=== PATIENT | male | born 1945 | race Caucasian/White ===

== ENCOUNTER → 2017-02-06 | Outpatient (CLI) | payer OTHER | LOC: BHFA 10:45 | PROVIDERS: ATTEND Internal Medicine Cardiovascular Disease | DX: R60.9 Edema, unspecified (principal) ==

== ENCOUNTER → 2018-08-12 | Outpatient (CLI) | payer OTHER | LOC: BHFA 08:30 | PROVIDERS: ATTEND Internal Medicine Cardiovascular Disease | DX: I48.92 Unspecified atrial flutter (principal) | CPT/HCPCS: 78452; 93017; A9500; J2785 ==

== ENCOUNTER 2018-08-19 07:42 | Observation (INO) | payer OTHER ==
[2018-08-19] MEDS ORDERED: NS 1,000 ML IV ONE (07:47)
[2018-08-19 08:22] LABS: PLATELET COUNT 239 10^3/uL (150-400)
[2018-08-19 08:36] LABS: INR 1.09 (0.83-1.16); PROTIME(PATIENT) 14.3 SEC (12.0-15.0)
--- NOTE | 2018-08-19 08:40 | PDGENHP ---
History & Physical Chief Complaint: symptomatic afl Relevant Physical Exam: s1s2 irreg cta ao3 Cardiorespiratory Assessment: for bridget and afl ablation
[2018-08-19] MEDS ORDERED: HEPARIN 10,000 UNIT/10 ML MDV (1,000 UNIT/ML) ONE (10:08)
[2018-08-19] MEDS ORDERED: LIDOCAINE 1% 300 MG/30 ML SDV ONE (10:08)
[2018-08-19] MEDS ORDERED: BUPIVACAINE 0.75% 10 ML SDV ONE (10:09)
--- NOTE | 2018-08-19 10:15 | PDANEPAE ---
ANE History of Present Illness here for AF ablation ANE Past Medical History - Cardiovascular History Hx Hypertension: Yes Hx Arrhythmias: Yes Hx Chest Pain: No Hx Coronary Artery / Peripheral Vascular Disease: Yes Hx CHF / Valvular Disease: No Cardiovascular History Comment: s/p cabg - Pulmonary History Hx COPD: No Hx Asthma/Reactive Airway Disease: No Hx Recent Upper Respiratory Infection: No Hx Oxygen in Use at Home: No Hx Sleep Apnea: Yes - Endocrine History Hx Diabetes: Yes - Renal History Hx Renal Disorders: No - Liver History Hx Hepatic Disorders: No - Neurological & Psychiatric Hx Hx Neurological and Psychiatric Disorders: No ANE Review of Systems Review of systems is: negative Review of Systems: - Exercise capacity Exercise capacity: >=4 METS ANE Patient History - Allergies Allergies/Adverse Reactions: Irpppiy-Vyq-Ege Reductase Inhibitor Allergy (Unknown, Verified 08/14/18 09:18) Other-Enter Comments - Home Medications Home medications: home medication list seen and reviewed Home Medications: Aspirin EC [Aspirin EC 81 mg (*)] 81 mg PO DAILY 10/20/14 [Last Taken 08/18/18 08:00] Carvedilol [Coreg (*)] 3.125 mg PO DAILY 10/20/14 [Last Taken 08/18/18] Dabigatran Etexilate Mesyl [Pradaxa 150 MG (RX)] 150 mg PO BID 10/20/14 [Last Taken 08/17/18 19:00] Fenofibrate [Tricor 145 mg (RX)] 145 mg PO DAILY 10/20/14 [Last Taken 08/18/18] Finasteride [Proscar 5 MG (*)] 5 mg PO DAILY 10/20/14 [Last Taken 08/18/18] Losartan Potassium [Cozaar] 100 mg PO DAILY 10/20/14 [Last Taken 08/18/18] Omeprazole [Prilosec 20 mg] 20 mg PO DAILY PRN 10/20/14 [Last Taken 08/18/18] Rosuvastatin Calcium [Crestor 40mg (RX)] 40 mg PO HS 10/20/14 [Last Taken ] Magnesium Amino Acid Chelate [Magnesium] 100 mg PO DAILY 08/14/18 [Last Taken ] [place]-3 Fatty Acids [Fish Oil 1000 mg (*)] 1,000 mg PO DAILY 08/14/18 [Last Taken 08/18/18] SITAGLIPTIN PHOSPHATE [Januvia 50 mg] 50 mg PO DAILY 08/14/18 [Last Taken ] buPROPion SR [Wellbutrin 150mg SR (*)] 150 mg PO BID 08/14/18 [Last Taken ] metFORMIN HCL [Glucophage 500 mg (*)] 500 mg PO BIDMEAL 08/14/18 [Last Taken ] - NPO status NPO Status: no food or drink >8 hours - Smoking Hx Smoking Status: Never smoked ANE Labs/Vital Signs - Labs Result Diagrams: 08/19/18 08:10 08/19/18 08:10 - Vital Signs Vital Signs: reviewed preoperatively; see RN documention for details Height: 175.26 cm Weight: 92.079 kg ANE Physical Exam - Airway Neck exam: FROM Mallampati Score: Class 2 Mouth exam: dentures - Pulmonary Pulmonary: no respiratory distress - Cardiovascular Cardiovascular: other (aflutter) - ASA Status ASA Status: III ANE Anesthesia Plan Anesthesia Plan: general endotracheal anesthesia
[2018-08-19] MEDS ORDERED: MIDAZOLAM 2 MG/2 ML VIAL ONE (10:24)
[2018-08-19] MEDS ORDERED: MIDAZOLAM 2 MG/2 ML VIAL IVP ONE (10:24)
[2018-08-19] MEDS ORDERED: PROPOFOL/EMULSION 500 MG/50 ML BOTTLE IV ONE (10:33)
[2018-08-19] MEDS ORDERED: fentaNYL 100 MCG/2 ML INJ ONE (10:40)
[2018-08-19] MEDS ORDERED: PHENYLEPHRINE HCL 100 MCG/ML SYR ONE ×2 (11:03)
[2018-08-19] MEDS ORDERED: ROCURONIUM 50 MG/5 ML VIAL ONE (11:03)
[2018-08-19] MEDS ORDERED: HEPARIN/DEXTROSE 25,000 UNIT/500 ML BAG ONE (11:18)
[2018-08-19] MEDS ORDERED: PROTAMINE SULFATE 50 MG/5 ML VIAL IVP ONE (12:31)
[2018-08-19] MEDS ORDERED: NEOSTIGMINE METHYLSULFATE 5 MG/5 ML SYR ONE (12:35)
[2018-08-19] MEDS ORDERED: GLYCOPYRROLATE 0.2 MG/1 ML VIAL ONE ×2 (12:35)
[2018-08-19] MEDS ORDERED: ePHEDrine SULFATE 25 MG/5 ML SYR ONE (12:37)
--- NOTE | 2018-08-19 12:46 | EPPROC ---
Electrophysiology Procedure Note: ELECTROPHYSIOLOGIC STUDY AND CATHETER MEDIATED ABLATION FOR SUBEUSTACHIAN ISTHMUS DEPENDENT COUNTERCLOCKWISE ATRIAL FLUTTER: INDICATION: Recurrent atrial flutter PROCEDURES PERFORMED: 80989-35 EP evaluation with RA/RV/LA pace/record, with arrhythmia induction 57807-88 EP evaluation with RA/RV pace record, insert/reposition catheter, with arrhythmia induction 24653 SVT ablation 33514 3D mapping Fluoroscopy Catheters & Anesthesia: The patient arrived in the Electrophysiology Laboratory in the fasting state. The right clavicular region, right groin, and left groin area were prepped and draped in the usual sterile manner. Anesthesiologist Dr. Caitlin Oliva administered general anesthesia. Appropriate non-invasive blood pressure, pulse oximetry and end-tidal CO2 monitoring was established. All catheters were placed percutaneously using the modified Seldinger technique , and advanced into position under fluoroscopic guidance. One #7 Spanish deflectable octapolar electrode catheter was advanced to the His-bundle position via the left femoral vein (2mm spacing; except the proximal ring which was 25cm from the tip used for unipolar recordings). One #7 Spanish deflectable catheter with 10 pairs of electrodes was placed via the left femoral vein into the coronary sinus. One # 7 Spanish Halo catheter was inserted through the right femoral vein and was placed at the tricuspid annulus. Heparin was administered to keep ACT > 250 seconds. Programmed stimulation was performed from the right atrium, coronary sinus ( left atrium) and right ventricle. On arrival to the Electrophysiology Laboratory the patient was in atrial flutter , CL 210 ms. Entrainment mapping from lateral TA, septal TA, proximal CS and distal CS confirmed cavotricuspid isthmus dependent atrial flutter. In preparation for ablation of typical atrial flutter, a high-resolution 3D (3 dimensional) Carto electroanatomical map of the sub-Eustachian isthmus and right atrium was obtained . For ablation of typical atrial flutter, one Mobi sheath was placed in the right atrium. A #8 Spanish deflectable quadrapolar electrode catheter (2mm-5mm- 2mm spacing) with 3.5 mm irrigated tip electrode and location sensor for the [employer] mapping system was inserted in the long sheath and advanced to the right atrium. Radiofrequency applications were applied between the tricuspid annulus at 0630 oclock as seen in the TONG[place] view and the inferior vena cava. This achieved termination of atrial flutter and then conduction block across the isthmus. Post ablation, a high-resolution electroanatomical map of the sub-Eustachian isthmus was obtained during pacing of the posterolateral coronary sinus. This confirmed conduction block across the sub-Eustachian isthmus. Bidirectional block was also confirmed by pacing. The catheters were removed. Protamine was administered. Sheaths were removed in the EP lab after applying subcutaneous purse string suture. The patient was transferred to the cardiovascular holding area in stable condition. There were no apparent complications. CONCLUSIONS: 1. Cavotricuspid isthmus dependent counterclockwise atrial flutter. 2. Successful catheter mediated ablation of cavotricuspid isthmus achieving bi -directional conduction block across cavotricuspid isthmus. 3. No apparent complications. Patient Problems: Problems Problem Status Onset Atrial flutter Acute
[2018-08-19] MEDS ORDERED: PANTOPRAZOLE SODIUM 40 MG TAB PO PRN (16:12)
[2018-08-19] MEDS ORDERED: ACETAMINOPHEN 325 MG TAB PO PRN (16:21)
--- NOTE | 2018-08-19 17:13 | POSTANESTH ---
Post Anesthetic Evaluation Cardiovascular Status: Normal, Stable Respiratory Status: Normal, Stable Level of Consciousness/Mental Status: Can Participate in Eval Pain Control: Adequate, Prn Tx Ordered Nausea/Vomiting Control: Adequate, Prn Tx Ordered Complications Possibly Related to Anesthesia: None Noted
[2018-08-19] MEDS: buPROPion SR 150 MG TAB PO SCH (20:47)
[2018-08-19] MEDS: DABIGATRAN ETEXILATE MESYL 150 MG CAP PO SCH (20:47)
[2018-08-19] MEDS ORDERED: ROSUVASTATIN CALCIUM 40 MG TAB PO SCH (21:00)
[2018-08-20 03:59] LABS: PLATELET COUNT 195 10^3/uL (150-400)
[2018-08-20 08:21] VITALS: BP 118/76
[2018-08-20] MEDS ORDERED: LOSARTAN POTASSIUM 50 MG TAB PO SCH (09:00)
[2018-08-20] MEDS ORDERED: FINASTERIDE 5 MG TAB PO SCH (09:00)
[2018-08-20] MEDS ORDERED: OMEGA-3 FATTY ACIDS 1,000 MG CAP PO SCH ×2 (09:00→21:00)
[2018-08-20] MEDS ORDERED: CARVEDILOL 3.125 MG TAB PO SCH (09:00)
[2018-08-20] MEDS ORDERED: Magnesium Amino Acid Chelate [Magnesium] 100 MG PO SCH (09:00)
[2018-08-20] MEDS ORDERED: FENOFIBRATE 145 MG TAB PO SCH ×2 (09:00→21:00)
[2018-08-20] MEDS ORDERED: ASPIRIN EC 81 MG TAB PO SCH ×2 (09:00→21:00)
[2018-08-20] MEDS: DABIGATRAN ETEXILATE MESYL 150 MG CAP PO SCH (10:07)
[2018-08-20] MEDS: buPROPion SR 150 MG TAB PO SCH (10:08)
--- NOTE | 2018-08-20 10:38 | ECHO ---
[email or web address] [address] Main: [phone] Fax: Transthoracic Echocardiogram Name: ZAINAB OZUNA MR#: [id number] Study Date: 08/20/2018 Study Time: 09:08 AM Date of : 1945 Age: 72 year(s) Height: 175.3 cm (69 in.) Weight: 92.08 kg (203 lb.) BSA: 2.08 m2 Gender: Male Examination: Echo Indication: F/U post EP study, hx CABG Image Quality: Contrast: Requested by: Garth Velazquez BP: / Heart Rate: Rhythm: Indication: F/U post EP study, hx CABG Procedure Staff Director Of [employer]: Kellen Hebert ELADIA Reading Physician: Romero Crain MD Requesting Provider: Conclusions: Normal size left ventricle. The ejection fraction is estimated to be 60-65 %. Normal diastolic LV function. LV septal motion consistent with conduction abnormality.. Normal size right ventricle. The left atrium is moderately to severely dilated. Mild to moderate mitral regurgitation. The aortic valve is normal in appearance and function. Mild tricuspid regurgitation is present. RVSP is 27mmHG.. No pericardial effusion. Measurements: Chambers Valvular Assessment AV/MV Valvular Assessment TV/PV Normal Normal Normal Name Value Range Name Value Range Name Value Range Ao Carito (MM): 3.9 cm (2.2 cm-3.7 AV Vmax: 1.22 m/s (1 m/s-1.7 TR Vmax: 2.32 mm/s ( - ) cm) m/s) TR PGmax: 22 mmHg ( - ) IVSd (2D): 0.9 cm (0.6 cm-1.1 AV meanP mmHg ( - ) syst. PAP: 27 mmHg ( - ) cm) MV E Vmax: 1.07 m/s ( - ) LVDd (2D): 4.7 cm (4.2 cm-5.9 MV A Vmax: 0.31 m/s ( - ) cm) MV E/A: 3.45 ( - ) LVDs (2D): 3.1 cm (2.1 cm-4 cm) LVPWd (2D): 1.1 cm (0.6 cm-1 cm) LVEF (MOD4): 72 % (>=55 %) EF Range: 60-65 % Continued Measurements: Patient: ZAINAB OZUNA Study Date: 08/20/2018 Page 1 of 2 09:08 AM Chambers Valvular Assessment AV/MV Valvular Assessment TV/PV Name Value Name Value Name Value LADs: 5.1 cm MV E' Septal: 0.08 m/s CVP (est.): 5 mmHg LADs Lon.1 cm MV E/E' Septal: 13.70 LA Area: 30.2 cm2 MV E/E' Lateral: 14.80 Additional Vessels Name Value Ao Ascendin.8 cm Findings: Left Ventricle: Normal size left ventricle. No LV hypertrophy. The ejection fraction is estimated to be 60-65 %. Normal diastolic LV function. LV septal motion consistent with conduction abnormality.. Right Ventricle: Normal size right ventricle. Left Atrium: The left atrium is moderately to severely dilated. Right Atrium: The right atrium is mildly dilated. RA area is 21.2 cm2.. Mitral Valve: Mild mitral annular calcification. Mild to moderate mitral regurgitation. Aortic Valve: The aortic valve is normal in appearance and function. The aortic valve is tri-leaflet. Tricuspid Valve: The tricuspid valve is normal in appearance and function. Mild tricuspid regurgitation is present. RVSP is 27mmHG.. Pulmonic Valve: The pulmonic valve is normal in appearance and function. Trivial pulmonic valve regurgitation. Aorta: The aorta is normal. Pericardium: No pericardial effusion. (No Signature Object) Patient: ZAINAB OZUNA Study Date: 08/20/2018 Page 2 of 2 09:08 AM [id number]
--- NOTE | 2018-08-20 12:16 | CPEKG ---
Test Reason : OPEN Blood Pressure : / mmHG Vent. Rate : 085 BPM Atrial Rate : 300 BPM P-R Int : 206 ms QRS Dur : 140 ms QT Int : 395 ms P-R-T Axes : 053 -26 006 degrees QTc Int : 470 ms Atrial flutter Right bundle branch block Probable posterior infarct, acute Atrial flutter is new in comparison to prior Confirmed by Troy Hand ([id number]) on 08/20/2018 12:16:23 PM Referred By: Confirmed By:Troy Hand
--- NOTE | 2018-08-20 12:18 | CPEKG ---
Test Reason : OPEN Blood Pressure : / mmHG Vent. Rate : 094 BPM Atrial Rate : 094 BPM P-R Int : 181 ms QRS Dur : 137 ms QT Int : 379 ms P-R-T Axes : 025 -36 004 degrees QTc Int : 474 ms Sinus rhythm Right bundle branch block Probable posterior infarct, acute Sinus rhythm has replaced atrial fibrillation on prior Confirmed by Troy Hand ([id number]) on 08/20/2018 12:18:26 PM Referred By: Confirmed By:Troy Hand
--- NOTE | 2018-08-20 12:22 | GDS ---
DISCHARGE DIAGNOSES: 1. Persistent atrial flutter, status post atrial flutter ablation. 2. History of coronary artery disease, status post coronary artery bypass graft remotely. 3. Type 2 diabetes mellitus. 4. Hypertension. 5. Dyslipidemia. 6. Obstructive sleep apnea. PROCEDURES: 1. 08/19/2018, EP study with identification of cavotricuspid isthmus dependent counterclockwise atri al flutter, status post successful catheter-mediated ablation of the cavotricuspid isthmus, achieving bidirectional conduction block across the isthmus. 2. 08/20/2018, echocardiogram which showed normal LV size and function, with an ejection fraction es timated to be 60-65 percent. There is LV septal motion abnormality consistent with a conduction abno rmality. The left atrium is moderate to severely dilated. There is mild to moderate MR. There is m ild TR present. BRIEF HISTORY: Please see dictated H and P from the office for complete details. In brief, the wes ent is a 72-year-old male with multiple medical problems, including hypertension, dyslipidemia, type 2 diabetes mellitus, sleep apnea, and coronary artery disease, status post CABG, who has been noting frequent episodes of atrial flutter. This has caused significant exercise intolerance. He was seen by Dr. Velazquez of EP, who found that he was having mostly atrial flutter. Options were reviewed, and bashir robbins was agreeable for ablation procedure, which was done on 08/19/2018. On day of discharge, the arjun ding denies any groin pain, chest pain, or dyspnea. He is being discharged to home with no changes to his medications. PHYSICAL EXAM: VITAL SIGNS: On day of discharge, blood pressure 118/76, heart rate of 57, respirati ons 20, O2 saturation 91% on room air, temp of 98.5 degrees Fahrenheit. GENERAL: He is a pleasant m thompson in no apparent distress. HEENT: Head is normocephalic, atraumatic. Eyes are without scleral ic terus. HEART: Regular rate and rhythm. LUNGS: Clear. SKIN: Bilateral groin sites without signif icant ecchymosis or bruit auscultated. Groin dressings were removed today. LABORATORY DATA: CBC with WBC 5.45, hemoglobin 9.8, hematocrit 28.7, platelet count of 195. BMP wit h sodium 133, potassium 4.3, chloride 100, CO2 23, BUN 21, creatinine 1.5, glucose of 93. Troponin 0 .342, consistent with recent ablation. RESULTS PENDING: None. DIET: Per previous. ACTIVITY: Groin precautions were reviewed. DISCHARGE MEDICATIONS: Please see med reconciliation. He is being discharged on his home medication s without any changes. DISCHARGE INSTRUCTIONS: Groin precautions. FOLLOWUP: With Dr. Velazquez as scheduled in 1 month's time. /[id number]/MODL
--- NOTE | 2018-08-21 09:11 | CPEKG ---
Test Reason : OPEN Blood Pressure : / mmHG Vent. Rate : 094 BPM Atrial Rate : 094 BPM P-R Int : 190 ms QRS Dur : 137 ms QT Int : 378 ms P-R-T Axes : 033 -47 009 degrees QTc Int : 473 ms Sinus rhythm RBBB and LAFB Inferior infarct, old Probable posterior infarct, acute Confirmed by Troy Hand ([id number]) on 08/21/2018 9:10:33 AM Referred By: Confirmed By:Troy Hand
== END 2018-08-20 13:07 | disposition home or self-care (01) ==
LOC: FCATH 07:42 → F2W 12:37
PROVIDERS: ADMIT Internal Medicine Cardiovascular Disease; ATTEND Internal Medicine Cardiovascular Disease
PROC: 02583ZZ Destruction of Conduction Mechanism, Percutaneous Approach (ICD-10-PCS; principal; 2018-08-19)
PROC: 5A1213Z Performance of Cardiac Pacing, Intermittent (ICD-10-PCS; principal; 2018-08-19)
PROC: 02K83ZZ Map Conduction Mechanism, Percutaneous Approach (ICD-10-PCS; principal; 2018-08-19)
PROC: 4A023FZ Measurement of Cardiac Rhythm, Percutaneous Approach (ICD-10-PCS; principal; 2018-08-19)
PROC: B2161ZZ Fluoroscopy of Right and Left Heart using Low Osmolar Contrast (ICD-10-PCS; principal; 2018-08-19)
DX: I48.92 Unspecified atrial flutter (principal); Z95.5 Presence of coronary angioplasty implant and graft
CPT/HCPCS: 93005; 93306; 93312; 93613; 93621; 93653; C1731; C1732; C1766; J1644; J2250; J2370; J2704; J2710; J2720; J3010

== ENCOUNTER → 2018-10-01 | Outpatient (CLI) | payer OTHER | LOC: BHFA 11:30 | PROVIDERS: ATTEND Internal Medicine Cardiovascular Disease | DX: I48.0 Paroxysmal atrial fibrillation (principal) ==

== ENCOUNTER 2018-11-30 10:36 | Observation (INO) | payer OTHER ==
[2018-11-30] MEDS ORDERED: NS 1,000 ML IV ONE (10:38)
[2018-11-30 11:17] LABS: PLATELET COUNT 225 10^3/uL (150-400)
[2018-11-30 11:32] LABS: INR 1.1 (0.83-1.16); PROTIME(PATIENT) 14.4 SEC (12.0-15.0)
[2018-11-30] MEDS ORDERED: HEPARIN 10,000 UNIT/10 ML MDV (1,000 UNIT/ML) ONE (14:20)
[2018-11-30] MEDS ORDERED: LIDOCAINE 1% 300 MG/30 ML SDV ONE (14:20)
[2018-11-30] MEDS ORDERED: ISOPROTERENOL HCL/D5W 0.2 MG/50 ML BAG IV ONE (14:20)
[2018-11-30] MEDS ORDERED: BUPIVACAINE 0.75% 10 ML SDV ONE (14:20)
--- NOTE | 2018-11-30 14:54 | PDGENHP ---
History & Physical Chief Complaint: afl Relevant Physical Exam: s1s2 irreg. cta. ao3 Cardiorespiratory Assessment: for bridget and AFL ablation
[2018-11-30] MEDS ORDERED: MIDAZOLAM 2 MG/2 ML VIAL ONE (15:17)
[2018-11-30] MEDS ORDERED: MIDAZOLAM 2 MG/2 ML VIAL IVP ONE (15:17)
[2018-11-30] MEDS ORDERED: ACETAMINOPHEN 500 MG TAB PO PRN (15:18)
[2018-11-30] MEDS ORDERED: fentaNYL 100 MCG/2 ML INJ IVP PRN (15:18)
[2018-11-30] MEDS ORDERED: NALOXONE HCL 0.4 MG/ML INJ IVP PRN (15:18)
[2018-11-30] MEDS ORDERED: ONDANSETRON 4 MG/2 ML VIAL IVP PRN (15:18)
[2018-11-30] MEDS ORDERED: ALBUTEROL 3 ML DEYVIAL IH PRN (15:18)
[2018-11-30] MEDS ORDERED: oxyCODONE IR 5 MG TAB PO PRN (15:18)
[2018-11-30] MEDS ORDERED: HYDROmorphONE/DILAUDID 2 MG/ML INJ IVP PRN (15:18)
[2018-11-30] MEDS ORDERED: DEXAMETHASONE 4 MG/ML VIAL IVP PRN (15:18)
[2018-11-30] MEDS ORDERED: fentaNYL 100 MCG/2 ML INJ ONE (15:27)
[2018-11-30] MEDS ORDERED: PROPOFOL 200 MG/20 ML VIAL ONE (15:28)
[2018-11-30] MEDS ORDERED: ROCURONIUM 50 MG/5 ML VIAL ONE ×2 (15:31→16:33)
[2018-11-30] MEDS ORDERED: ONDANSETRON 4 MG/2 ML VIAL ONE (15:31)
[2018-11-30] MEDS ORDERED: DEXAMETHASONE 4 MG/ML VIAL ONE (15:31)
[2018-11-30] MEDS ORDERED: METOCLOPRAMIDE 10 MG/2 ML VIAL ONE (15:38)
[2018-11-30] MEDS ORDERED: PHENYLEPHRINE HCL 100 MCG/ML SYR ONE (15:47)
--- NOTE | 2018-11-30 15:59 | PDANEPAE ---
ANE History of Present Illness EP Study & Ablation ANE Past Medical History - Cardiovascular History Hx Hypertension: Yes Hx Arrhythmias: Yes Hx Chest Pain: No Hx Coronary Artery / Peripheral Vascular Disease: Yes Hx CHF / Valvular Disease: No Cardiovascular History Comment: s/p cabg - Pulmonary History Hx COPD: No Hx Asthma/Reactive Airway Disease: No Hx Recent Upper Respiratory Infection: No Hx Oxygen in Use at Home: No Hx Sleep Apnea: Yes - Endocrine History Hx Diabetes: Yes - Renal History Hx Renal Disorders: No - Liver History Hx Hepatic Disorders: No - Neurological & Psychiatric Hx Hx Neurological and Psychiatric Disorders: No - Chronic Pain History Chronic Pain: No ANE Review of Systems Review of Systems: ANE Patient History - Allergies Allergies/Adverse Reactions: Kuzriey-Urf-Nik Reductase Inhibitor Allergy (Unknown, Verified 08/14/18 09:18) Other-Enter Comments - Home Medications Home Medications: Aspirin EC [Aspirin EC 81 mg (*)] 81 mg PO DAILY 10/20/14 [Last Taken 08/18/18 08:00] Dabigatran Etexilate Mesyl [Pradaxa 150 MG (*)] 150 mg PO BID 10/20/14 [Last Taken 08/17/18 19:00] Fenofibrate [Tricor 145 mg (*)] 145 mg PO DAILY 10/20/14 [Last Taken 08/18/18] Finasteride [Proscar 5 MG (*)] 5 mg PO DAILY 10/20/14 [Last Taken 08/18/18] Losartan Potassium [Cozaar] 100 mg PO DAILY 10/20/14 [Last Taken 08/18/18] Omeprazole [Prilosec 20 mg] 20 mg PO DAILY PRN 10/20/14 [Last Taken 08/18/18] [place]-3 Fatty Acids [Fish Oil 1000 mg (*)] 1,000 mg PO DAILY 08/14/18 [Last Taken 08/18/18] SITAGLIPTIN PHOSPHATE [Januvia 50 mg] 50 mg PO DAILY 08/14/18 [Last Taken ] buPROPion SR [Wellbutrin 150mg SR (*)] 150 mg PO BID 08/14/18 [Last Taken ] metFORMIN HCL [Glucophage 500 mg (*)] 500 mg PO BIDMEAL 08/14/18 [Last Taken ] Carvedilol [Coreg (*)] 6.25 mg PO BID 01/21/19 [Last Taken Unknown] Enoxaparin Sodium 80 mg SQ Q12H 11/23/18 [Last Taken Unknown] Herbals/Supplements -Info Only 1 ea PO DAILY 11/23/18 [Last Taken Unknown] Rosuvastatin Calcium [Crestor 20mg (*)] 20 mg PO HS 11/23/18 [Last Taken Unknown ] - Smoking Hx Smoking Status: Never smoked ANE Labs/Vital Signs - Labs Result Diagrams: 11/30/18 11:05 11/30/18 11:05 - Vital Signs Height: 175 cm Weight: 92.5 kg ANE Physical Exam - Airway Neck exam: FROM Mallampati Score: Class 2 Mouth exam: dentures - Pulmonary Pulmonary: clear to auscultation - Cardiovascular Cardiovascular: irregularly irregular - ASA Status ASA Status: III ANE Anesthesia Plan Anesthesia Plan: general endotracheal anesthesia
--- NOTE | 2018-11-30 15:59 | CPEKG ---
Test Reason : OPEN Blood Pressure : / mmHG Vent. Rate : 076 BPM Atrial Rate : 076 BPM P-R Int : 144 ms QRS Dur : 137 ms QT Int : 383 ms P-R-T Axes : 040 -27 -02 degrees QTc Int : 431 ms Atrial flutter with predominant 3:1 AV block Right bundle branch block ST elevation, consider lateral injury Confirmed by Romreo Crain ([id number]) on 11/30/2018 3:58:46 PM Referred By: Garth Velazquez Confirmed By:Romero Crain
[2018-11-30] MEDS ORDERED: ePHEDrine SULFATE 25 MG/5 ML SYR ONE (16:02)
[2018-11-30] MEDS ORDERED: SUGAMMADEX SODIUM 200 MG/2 ML VIAL IVP ONE (16:52)
--- NOTE | 2018-11-30 16:55 | EPPROC ---
Electrophysiology Procedure Note: ELECTROPHYSIOLOGIC STUDY AND CATHETER MEDIATED ABLATION FOR SUBEUSTACHIAN ISTHMUS DEPENDENT CLOCKWISE ATRIAL FLUTTER: INDICATION: Recurrent atrial flutter Prior AFL ablation at our institution PROCEDURES PERFORMED: 40364-83 EP evaluation with RA/RV/LA pace/record, with arrhythmia induction 46340-34 EP evaluation with RA/RV pace record, insert/reposition catheter, with arrhythmia induction 44210 SVT ablation 30422 3D mapping Fluoroscopy Catheters & Anesthesia: The patient arrived in the Electrophysiology Laboratory in the fasting state. The right clavicular region, right groin, and left groin area were prepped and draped in the usual sterile manner. Anesthesiologist Dr. Brenda Shepard administered general anesthesia. Appropriate non-invasive blood pressure, pulse oximetry and end-tidal CO2 monitoring was established. All catheters were placed percutaneously using the modified Seldinger technique , and advanced into position under fluoroscopic guidance. One #7 Turkish deflectable octapolar electrode catheter was advanced to the His-bundle position via the R femoral vein and then in CS. One # 7 Turkish Halo catheter was inserted through the right femoral vein and was placed at the tricuspid annulus. Heparin was administered to keep ACT > 300 seconds. Programmed stimulation was performed from the right atrium, coronary sinus ( left atrium) and right ventricle. Parahisian pacing demonstrated all retrograde conduction over the AV node. On arrival to the Electrophysiology Laboratory the patient was in clockwise atrial flutter CL 275 ms. In preparation for ablation of typical atrial flutter, a high-resolution 3D (3 dimensional) Carto electroanatomical map of the sub-Eustachian isthmus and right atrium was obtained during pacing of the posterolateral coronary sinus. For ablation of typical atrial flutter, one Mobi sheath was placed in the right atrium. A #8 Turkish deflectable quadrapolar electrode catheter (2mm-5mm-2mm spacing) with 3.5 mm irrigated tip electrode and location sensor for the [employer] mapping system was inserted in the long sheath and advanced to the right atrium. Radiofrequency applications were applied between the tricuspid annulus at 0630 oclock as seen in the [place] view and the inferior vena cava. First ablation achieved conduction block across the isthmus near the tricuspid annulus. Further RF applications were delivered. Post ablation, a high-resolution electroanatomical map of the sub-Eustachian isthmus was obtained during pacing of the posterolateral coronary sinus. This confirmed conduction block across the sub-Eustachian isthmus. Bidirectional block was also confirmed by pacing. The catheters were removed. Protamine was administered. Sheaths were removed in the EP lab after applying subcutaneous purse string suture. The patient was transferred to the cardiovascular holding area in stable condition. There were no apparent complications. CONCLUSIONS: 1. Cavotricuspid isthmus dependent clockwise atrial flutter. 2. Successful catheter mediated ablation of cavotricuspid isthmus achieving bi -directional conduction block across cavotricuspid isthmus. 3. No atrial arrhythmias inducible post ablation. 4. No apparent complications. Patient Problems: Problems Problem Status Onset Atrial flutter Acute
--- NOTE | 2018-11-30 17:11 | POSTANESTH ---
Post Anesthetic Evaluation Cardiovascular Status: Normal, Stable Respiratory Status: Normal, Stable Level of Consciousness/Mental Status: Can Participate in Eval, Mildly Sleepy, Arousable Pain Control: Adequate, Prn Tx Ordered Nausea/Vomiting Control: Adequate, Prn Tx Ordered Complications Possibly Related to Anesthesia: None Noted
[2018-11-30] MEDS ORDERED: ROSUVASTATIN CALCIUM 20 MG TAB PO SCH (21:00)
[2018-11-30] MEDS: DABIGATRAN ETEXILATE MESYL 150 MG CAP PO SCH (22:34)
[2018-11-30] MEDS: metFORMIN HCL 500 MG TAB PO SCH (22:34)
[2018-11-30] MEDS: buPROPion SR 150 MG TAB PO SCH (22:35)
[2018-11-30] MEDS: CARVEDILOL 6.25 MG TAB PO SCH (22:35)
[2018-12-01] MEDS: buPROPion SR 150 MG TAB PO SCH (08:38)
[2018-12-01] MEDS: metFORMIN HCL 500 MG TAB PO SCH (08:38)
[2018-12-01] MEDS: DABIGATRAN ETEXILATE MESYL 150 MG CAP PO SCH (08:39)
[2018-12-01] MEDS: CARVEDILOL 6.25 MG TAB PO SCH (08:39)
[2018-12-01] MEDS ORDERED: ASPIRIN EC 81 MG TAB PO SCH (09:00)
[2018-12-01] MEDS ORDERED: PANTOPRAZOLE SODIUM 40 MG TAB PO PRN (09:00)
[2018-12-01] MEDS ORDERED: FINASTERIDE 5 MG TAB PO SCH (09:00)
[2018-12-01] MEDS ORDERED: FENOFIBRATE 145 MG TAB PO SCH (09:00)
[2018-12-01] MEDS ORDERED: Herbals/Supplements -Info Only PO SCH (09:00)
[2018-12-01 11:14] VITALS: BP 119/79
--- NOTE | 2018-12-01 12:02 | ECHO ---
[email or web address] [address] [address] Main: [phone] Fax: Transthoracic Echocardiogram Name: ZAINAB OZUNA MR#: [id number] Study Date: 12/01/2018 Study Time: 07:21 AM Date of : 1945 Age: 72 year(s) Height: 175.3 cm (69 in.) Weight: 92.08 kg (203 lb.) BSA: 2.08 m2 Gender: Male Examination: Echo Indication: Post EP study Image Quality: Good Contrast: Requested by: Garth Velazquez BP: / Heart Rate: Rhythm: Indication: Post EP study Procedure Staff Psychology Professor: Reading Physician: Garth Velazquez MD Requesting Provider: Garth Velazquez MD Psychology Professor: Kellen Hebert RD Reading Physician: Requesting Provider: Conclusions: Normal global systolic LV function. The ejection fraction is estimated to be 60-65 %. LV septal motion is consistent with conduction abnormality.. The left atrium is mildly dilated. The right atrium is mildly dilated. Moderate mitral valve regurgitation is present. Moderate tricuspid regurgitation is present. RVSP is 37mmHG.. Based on moderate mitral regurgitation, a repeat echo may be considered in 1 yr unless there is a change in clinical status. Measurements: Chambers Valvular Assessment AV/MV Valvular Assessment TV/PV Normal Normal Normal Name Value Range Name Value Range Name Value Range Ao Carito (MM): 4.1 cm (2.2 cm-3.7 AV Vmax: 1.20 m/s (1 m/s-1.7 TR Vmax: 2.81 mm/s ( - ) cm) m/s) TR PGmax: 32 mmHg ( - ) IVSd (2D): 1.0 cm (0.6 cm-1.1 AV meanP mmHg ( - ) syst. PAP: 37 mmHg ( - ) cm) MV E Vmax: 0.94 m/s ( - ) LVDd (2D): 5.1 cm (4.2 cm-5.9 MV A Vmax: 0.34 m/s ( - ) cm) MV E/A: 2.76 ( - ) LVDs (2D): 3.8 cm (2.1 cm-4 cm) LVPWd (2D): 1.1 cm (0.6 cm-1 cm) LVOTd 1.9 cm 1.9 cm mm LVEF (BP): 73 % (>=55 %) Patient: ZAINAB OZUNA Study Date: 12/01/2018 Page 1 of 2 07:21 AM EF Range: 60-65 % Continued Measurements: Chambers Valvular Assessment AV/MV Valvular Assessment TV/PV Name Value Name Value Name Value LADs: 4.5 cm MV E' Septal: 0.06 m/s CVP (est.): 5 mmHg LADs Lon.9 cm MV E/E' Septal: 15.30 LA Area: 23.9 cm2 MV E/E' Lateral: 15.00 LA Volume: 78 ml LA Volume Index: 37.5 ml/m2 Additional Vessels Name Value Ao Ascendin.6 cm Findings: Left Ventricle: Normal size left ventricle. No LV hypertrophy. Normal global systolic LV function. The ejection fraction is estimated to be 60-65 %. Diastolic dysfunction is present. . LV septal motion is consistent with conduction abnormality.. Right Ventricle: Normal size right ventricle. Left Atrium: The left atrium is mildly dilated. Right Atrium: The right atrium is mildly dilated. Mitral Valve: The mitral valve is normal in appearance and function. Moderate mitral valve regurgitation is present. Aortic Valve: The aortic valve is normal in appearance and function. The aortic valve is tri-leaflet. There is no aortic valve regurgitation. Tricuspid Valve: The tricuspid valve is normal in appearance and function. Moderate tricuspid regurgitation is present. RVSP is 37mmHG.. Pulmonic Valve: The pulmonic valve is normal in appearance and function. Trivial pulmonic valve regurgitation. Aorta: The aorta is normal. Pericardium: No pericardial effusion. (No Signature Object) Patient: ZAINAB OZUNA Study Date: 12/01/2018 Page 2 of 2 07:21 AM [id number]
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
--- NOTE | 2018-12-01 16:27 | CPEKG ---
Test Reason : OPEN Blood Pressure : / mmHG Vent. Rate : 083 BPM Atrial Rate : 083 BPM P-R Int : 193 ms QRS Dur : 134 ms QT Int : 390 ms P-R-T Axes : 030 -34 004 degrees QTc Int : 459 ms Sinus rhythm Right bundle branch block Confirmed by Roemro Crain ([id number]) on 12/01/2018 4:26:54 PM Referred By: Garth Velazquez Confirmed By:Romero Crain
--- NOTE | 2018-12-01 16:40 | CPEKG ---
Test Reason : OPEN Blood Pressure : / mmHG Vent. Rate : 078 BPM Atrial Rate : 078 BPM P-R Int : 188 ms QRS Dur : 138 ms QT Int : 394 ms P-R-T Axes : 029 -41 -09 degrees QTc Int : 449 ms Sinus rhythm RBBB and LAFB Confirmed by Romero Crain ([id number]) on 12/01/2018 4:40:18 PM Referred By: Garth Velazquez Confirmed By:Romero Crain
--- NOTE | 2018-12-01 22:57 | GDS ---
[f rep st] DISCHARGE SUMMARY SUPERVISING PLANT ANATOMIST: Garth Velazquez MD ADMISSION DIAGNOSES: 1. Coronary artery disease, status post bypass surgery. 2. Hypertension. 3. Hyperlipidemia. 4. Atrial flutter. DISCHARGE DIAGNOSES: 1. Atrial flutter, status post successful ablation. 2. Sinus Wenckebach HOSPITAL COURSE: The patient presented, November 30, 2018, for atrial flutter ablation with Dr. Garth Velazquez in the setting of increasingly frequent episodes of symptomatic atrial flutter. He underwent successful atrial flutter ablation without intraprocedure complications. He has done very well in the post- procedure period, although telemetry overnight did demonstrate several episodes of what appears to be Sinus block/sinus Wenckebach. We have placed a ZIO monitor for extended ECG monitoring at this time, and he is appropriate and stable for discharge home today. PROCEDURES PERFORMED DURING HOSPITALIZATION: 1. Electrocardiogram. 2. Echocardiogram. 3. Electrophysiology study. 4. Atrial flutter ablation. CURRENT PHYSICAL EXAMINATION: GENERAL: Alert and oriented x4, in no apparent distress. VITAL SIGNS: Blood pressure is 116/78. Heart rate is 79. SpO2 is 98% on room air. Respiratory rate is 17. Temp is 37.1 degrees Celsius. RESPIRATORY: Lungs are clear to auscultation without adventitious breath sounds. CARDIAC: Normal S1 and S2. No S3, S4, or murmurs. Rhythm is regular. ABDOMEN: Normoactive bowel sounds times all 4 quadrants. No masses or tenderness. ABDOMEN: Soft. SKIN: [place], warm, dry without cyanosis, clubbing, or peripheral edema. EXTREMITIES: Right pursestring suture removed intact without evidence of hematoma, redness, oozing, swelling, or warmth. Pulses are 2+ bilaterally. No edema. LABORATORY STUDIES: Drawn today. BMP is stable. Troponin is 0.082. This is to be expected in the post-procedure setting. PROCEDURES: Electrophysiology study and atrial flutter ablation as mentioned above. Preliminary echocardiogram done this morning demonstrates normal left ventricular systolic function without any wall motion abnormalities or pericardial effusion. Electrocardiogram this morning demonstrates normal sinus rhythm without new ST-T wave or UT interval abnormalities. DISCHARGE DISPOSITION: The patient will be discharged home in stable condition. He is under activity restrictions as below. DISCHARGE MEDICATIONS: Please see discharge medication reconciliation sheet for full details. Please note, patient has been restarted on his blood thinner. He will hold his metformin for 48 hours post procedure. DISCHARGE INSTRUCTIONS: Post-atrial flutter ablation instructions were reviewed with the patient in detail. We discussed activity restrictions, including lifting no more than 10 pounds and avoidance of submerged bathing for 10 days. He will get up and walk around every 45 minutes for 45 days. We also reviewed bleeding precautions, medication compliance, monitoring for signs and symptoms of infection and monitoring for sustained arrhythmia. A ZIO monitor has been placed today for further evaluation of his sinus Wenckebach as noted on telemetry overnight. He is asymptomatic at this time and understands all instructions related to the extended ECG monitoring. He verbalizes understanding regarding all discharge instructions and denies any questions or concerns. He has a followup visit scheduled in 4 weeks, and he will contact our clinic with any new or concerning symptoms prior to his upcoming visit. Time spend on discharge: Greater than 30 minutes /[id number]/MODL MTDD
== END 2018-12-01 13:30 | disposition home or self-care (01) ==
LOC: FCATH 10:36 → F2W 16:42
PROVIDERS: ADMIT Internal Medicine Cardiovascular Disease; ATTEND Internal Medicine Cardiovascular Disease
DX: I48.92 Unspecified atrial flutter (principal); I44.1 Atrioventricular block, second degree; I25.10 Atherosclerotic heart disease of native coronary artery without angina pectoris; I10 Essential (primary) hypertension; E78.5 Hyperlipidemia, unspecified; E11.9 Type 2 diabetes mellitus without complications; Z95.1 Presence of aortocoronary bypass graft
CPT/HCPCS: 93005; 93306; 93312; 93613; 93621; 93653; C1731; C1732; C1766; G0378; J1644; J2250; J2370; J2405; J2704; J2765; J3010; J1100

== ENCOUNTER 2019-02-19 15:18 | Observation (INO) | payer OTHER ==
[2019-02-19] MEDS ORDERED: NS 500 ML IV ONE (15:40)
--- NOTE | 2019-02-19 15:47 | EDPHY ---
H & P Stated Complaint: LH since , hx afib Time Seen by Provider: 02/19/19 15:29 HPI/ROS: CHIEF COMPLAINT: Lightheaded, bradycardic HISTORY OF PRESENT ILLNESS: The patient is a 73-year-old man with a history of cardiovascular disease with a 6 vessel bypass in 2004, also atrial flutter status post 2 ablations now with paroxysmal atrial fibrillation on Pradaxa. He states that over the last 8 days he has been feeling a lightheaded this rash when he stands up and walks. No shortness of breath. No chest pain. No nausea vomiting. No fevers. No cough. He has an aydee on his phone that shows an EKG. When he checked his appy this morning he felt like he was having 4 sec pauses and called Dr. Hand who conferred with Dr. Velazquez and had the patient come to the ER. Severity: Moderate Modifying factors: None REVIEW OF SYSTEMS: Constitutional: denies: chills, fever, recent illness, recent injury EENTM: denies: blurred vision, double vision, nose congestion Respiratory: denies: cough, shortness of breath Cardiac: See HPI denies: chest pain Gastrointestinal/Abdominal: denies: abdominal pain, diarrhea, nausea, vomiting, blood streaked stools Genitourinary: denies: dysuria, frequency, hematuria, pain Musculoskeletal: denies: joint pain, muscle pain Skin: denies: lesions, rash, jaundice, bruising Neurological: denies: headache, numbness, paresthesia, tingling, dizziness, weakness Hematologic/Lymphatic: denies: blood clots, easy bleeding, easy bruising Immunologic/allergic: denies: HIV/AIDS, transplant 10 systems reviewed and negative except as noted EXAM: GENERAL: Well-appearing, well-nourished and in no acute distress. HEAD: Atraumatic, normocephalic. EYES: Pupils equal round and reactive to light, extraocular movements intact, sclera anicteric, conjunctiva are normal. ENT: TMs normal, nares patent, oropharynx clear without exudates. Moist mucous membranes. NECK: Normal range of motion, supple without lymphadenopathy or JVD. LUNGS: Breath sounds clear to auscultation bilaterally and equal. No wheezes rales or rhonchi. HEART: Regular rate and rhythm without murmurs, rubs or gallops. ABDOMEN: Soft, nontender, normoactive bowel sounds. No guarding, no rebound. No masses appreciated. BACK: No CVA tenderness, no spinal tenderness, step-offs or deformities EXTREMITIES: Normal range of motion, no pitting or edema. No clubbing or cyanosis. NEUROLOGICAL: Cranial nerves II through XII grossly intact. Normal speech, normal gait. 5/5 strength, normal movement in all extremities, normal sensation , normal reflexes PSYCH: Normal mood, normal affect. SKIN: Warm, dry, normal turgor, no visible rashes or lesions. Source: Patient Exam Limitations: No limitations - Medical/Surgical History Hx Asthma: No Hx Chronic Respiratory Disease: No Hx Diabetes: Yes Hx Cardiac Disease: Yes Hx Renal Disease: No Hx Cirrhosis: No Hx Alcoholism: No Hx Splenectomy or Spleen Trauma: No Other PMH: med hx- diabetes type 2,depression,cholesterol, bypass-2004,gerd,a- fib - pradaxa, amber, amiloidosis of bladder, diverticulitis, PTSD, psoriasis - Family History Significant Family History: No pertinent family hx - Social History Smoking Status: Never smoked Alcohol Use: Sober Drug Use: None Constitutional: Initial Vital Signs Temperature (C) 36.8 C 02/19/19 15:20 Heart Rate 90 02/19/19 15:20 Respiratory Rate 18 02/19/19 15:20 Blood Pressure 145/77 H 02/19/19 15:20 O2 Sat (%) 97 02/19/19 15:20 O2 Delivery Mode Room Air Allergies/Adverse Reactions: Hckaqkp-Nsi-Prb Reductase Inhibitor Allergy (Unknown, Verified 02/19/19 15:20) Other-Enter Comments Home Medications: Medication Instructions Recorded Aspirin EC [Aspirin EC 81 mg (*)] 81 mg PO DAILY 10/20/14 Dabigatran Etexilate Mesyl 150 mg PO BID 10/20/14 [Pradaxa 150 MG (*)] Fenofibrate [Tricor 145 mg (*)] 145 mg PO DAILY 10/20/14 Finasteride [Proscar 5 MG (*)] 5 mg PO DAILY 10/20/14 Losartan Potassium [Cozaar] 100 mg PO DAILY 10/20/14 Omeprazole [Prilosec 20 mg] 20 mg PO DAILY PRN 10/20/14 [place]-3 Fatty Acids [Fish Oil 1000 1,000 mg PO DAILY 08/14/18 mg (*)] SITAGLIPTIN PHOSPHATE [Januvia 50 50 mg PO DAILY 08/14/18 mg] buPROPion SR [Wellbutrin 150mg SR 150 mg PO BID 08/14/18 (*)] Carvedilol [Coreg (*)] 6.25 mg PO BID 11/23/18 Herbals/Supplements -Info Only 1 ea PO DAILY 11/23/18 Rosuvastatin Calcium [Crestor 20mg 20 mg PO HS 11/23/18 (*)] Medical Decision Making - Diagnostics Imaging Results: Imaging Impressions Chest X-Ray 02/19/19 15:42 Impression: Cardiomegaly with no acute findings in the chest. Imaging: Discussed imaging studies w/ teacher physically impaired Radiologist ED Course/Re-evaluation: I reviewed the patient's aydee EKG readings. He was frequently bradycardic around 50 but no obvious cardiac pause appreciated. Here in the ER he is in the 60s and 70s and asymptomatic. He states however that if he gets up and walks around that he gets lightheaded. Will obtain lab work an EKG and x-ray and observe. Dr. Hand did call head and states that the patient may need a pacemaker but it is not likely to be urgent however if he continues to be symptomatic may require admission. 4:30 p.m. the patient is feeling somewhat better after IV hydration. Discussed lab work EKG and x-ray thus far which are all reassuring. Will admit for monitoring. Discussed the case with Dr. Barriga. Differential Diagnosis: Partial list of the Differential diagnosis considered include but were not limited to; bradycardia, presyncope, arrhythmia and although unlikely based on the history and physical exam, I also considered acute coronary disease, infection, pneumonia, PE. - Data Points Laboratory Results: Laboratory Results 02/19/19 15:43 02/19/19 15:43 02/19/19 02/19/19 02/19/19 15:52 15:43 15:43 WBC RBC Hgb Hct MCV MCH MCHC RDW Plt Count MPV Neut % (Auto) Lymph % (Auto) Carbon % (Auto) Eos % (Auto) Baso % (Auto) Nucleat RBC Rel Count Absolute Neuts (auto) Absolute Lymphs (auto) Absolute Monos (auto) Absolute Eos (auto) Absolute Basos (auto) Absolute Nucleated RBC Immature Gran % Immature Gran # PT INR APTT Sodium 132 mEq/L L mEq/L (135-145) Potassium 4.1 mEq/L mEq/L (3.5-5.2) Chloride 97 mEq/L mEq/L (97-110) Carbon Dioxide 25 mEq/l mEq/l (22-31) Anion Gap 10 mEq/L mEq/L (6-14) BUN 22 mg/dL mg/dL (7-23) Creatinine 1.4 mg/dL H mg/dL (0.7-1.3) Estimated GFR 50 Glucose 171 mg/dL H mg/dL (70-100) Hemoglobin A1c Pending Estim Average Glucose Pending Calcium 9.4 mg/dL mg/dL (8.5-10.4) Total Bilirubin 1.0 mg/dL mg/dL (0.1-1.4) Conjugated Bilirubin 0.4 mg/dL mg/dL (0.0-0.5) Unconjugated Bilirubin 0.6 mg/dL mg/dL (0.0-1.1) AST 32 IU/L IU/L (17-59) ALT 26 IU/L IU/L (21-72) Alkaline Phosphatase 47 IU/L IU/L (38-126) POC Troponin I 0.04 ng/mL ng/mL (0.00-0.08) Total Protein 7.6 g/dL g/dL (6.3-8.2) Albumin 4.6 g/dL g/dL (3.5-5.0) 02/19/19 02/19/19 15:43 15:43 WBC 6.04 10^3/uL 10^3/uL (3.80-9.50) RBC 3.68 10^6/uL L 10^6/uL (4.40-6.38) Hgb 11.7 g/dL L g/dL (13.7-17.5) Hct 33.6 % L % (40.0-51.0) MCV 91.3 fL fL (81.5-99.8) MCH 31.8 pg pg (27.9-34.1) MCHC 34.8 g/dL g/dL (32.4-36.7) RDW 13.9 % % (11.5-15.2) Plt Count 236 10^3/uL 10^3/uL (150-400) MPV 9.5 fL fL (8.7-11.7) Neut % (Auto) 66.6 % % (39.3-74.2) Lymph % (Auto) 14.4 % L % (15.0-45.0) Carbon % (Auto) 9.6 % % (4.5-13.0) Eos % (Auto) 8.3 % H % (0.6-7.6) Baso % (Auto) 0.8 % % (0.3-1.7) Nucleat RBC Rel Count 0.0 % % (0.0-0.2) Absolute Neuts (auto) 4.02 10^3/uL 10^3/uL (1.70-6.50) Absolute Lymphs (auto) 0.87 10^3/uL L 10^3/uL (1.00-3.00) Absolute Monos (auto) 0.58 10^3/uL 10^3/uL (0.30-0.80) Absolute Eos (auto) 0.50 10^3/uL H 10^3/uL (0.03-0.40) Absolute Basos (auto) 0.05 10^3/uL 10^3/uL (0.02-0.10) Absolute Nucleated RBC 0.00 10^3/uL 10^3/uL (0-0.01) Immature Gran % 0.3 % % (0.0-1.1) Immature Gran # 0.02 10^3/uL 10^3/uL (0.00-0.10) PT 18.0 SEC H SEC (12.0-15.0) INR 1.56 H (0.83-1.16) APTT 60.3 SEC H SEC (23.0-38.0) Sodium Potassium Chloride Carbon Dioxide Anion Gap BUN Creatinine Estimated GFR Glucose Hemoglobin A1c Estim Average Glucose Calcium Total Bilirubin Conjugated Bilirubin Unconjugated Bilirubin AST ALT Alkaline Phosphatase POC Troponin I Total Protein Albumin Medications Given: Sodium Chloride (Ns) 1,000 mls @ 125 mls/hr IV CONT JOSE Stop: 08/18/19 17:44 Last Admin: 02/19/19 18:44 Dose: 1,000 mls Discontinued Medications Sodium Chloride (Ns) 500 mls @ 1,000 mls/hr IV EDNOW ONE PRN Reason: Protocol Stop: 02/19/19 16:09 Last Admin: 02/19/19 15:59 Dose: 500 mls Point of Care Test Results: Chemistry 02/19/19 15:52 POC Troponin I 0.04 ng/mL ng/mL (0.00-0.08) Departure - Departure Disposition: Home, Routine, Self-Care Clinical Impression: Pre-syncope, Bradycardia Condition: Fair
[2019-02-19 16:02] LABS: PLATELET COUNT 236 10^3/uL (150-400)
[2019-02-19 16:06] LABS: INR 1.56 (0.83-1.16)
--- NOTE | 2019-02-19 16:13 | CPEKG ---
Test Reason : OPEN Blood Pressure : / mmHG Vent. Rate : 071 BPM Atrial Rate : 072 BPM P-R Int : 176 ms QRS Dur : 142 ms QT Int : 432 ms P-R-T Axes : 036 -40 016 degrees QTc Int : 470 ms Sinus rhythm RBBB and LAFB Confirmed by Dakotah Soto ([id number]) on 02/19/2019 4:13:18 PM Referred By: DAKOTAH SOTO Confirmed By:Dakotah Soto
--- NOTE | 2019-02-19 17:29 | PDGENHP ---
History and Physical - Chief Complaint generalized malaise, near syncope, slow HR - History of Present Illness 73 yo M w/PMH of CAD s/p 6 vessel CABG, a flutter/fibrillation s/p 2 flutter ablations presenting with 1 week of generalized malaise, dizziness, near syncope and slow heart rate. Patient notes that he has an iphone ecg aydee and that he has been checking daily his heart rhythm, for the last week he has had issues with intermittently slow heart rate and yesterday thinks he may have had up to a 4 second pause. He has had several bouts of feeling dizzy, and lightheaded to where he feels as if he might pass out over this week. These episodes are generally followed by nausea. He has had occasional brief sensations of pinching over his left chest, but no real chest pain. He otherwise has felt fine recently, he states he has chronic leg swelling that is unchanged. He did recently stop metformin apparently with his doctors advice and has not been checking his BS as often, not at all x 3 days. Patient was seen by Dr. Hand in office today who recommended he come to ER for admission. History Information - Allergies/Home Medication List Allergies/Adverse Reactions: Urmmppi-Tkw-Jle Reductase Inhibitor Allergy (Unknown, Verified 02/19/19 15:20) Other-Enter Comments Home Medications: Aspirin EC [Aspirin EC 81 mg (*)] 81 mg PO DAILY 10/20/14 [Last Taken 08/18/18 08:00] Dabigatran Etexilate Mesyl [Pradaxa 150 MG (*)] 150 mg PO BID 10/20/14 [Last Taken 08/17/18 19:00] Fenofibrate [Tricor 145 mg (*)] 145 mg PO DAILY 10/20/14 [Last Taken 08/18/18] Finasteride [Proscar 5 MG (*)] 5 mg PO DAILY 10/20/14 [Last Taken 08/18/18] Losartan Potassium [Cozaar] 100 mg PO DAILY 10/20/14 [Last Taken 08/18/18] Omeprazole [Prilosec 20 mg] 20 mg PO DAILY PRN 10/20/14 [Last Taken 08/18/18] [place]-3 Fatty Acids [Fish Oil 1000 mg (*)] 1,000 mg PO DAILY 08/14/18 [Last Taken 08/18/18] SITAGLIPTIN PHOSPHATE [Januvia 50 mg] 50 mg PO DAILY 08/14/18 [Last Taken ] buPROPion SR [Wellbutrin 150mg SR (*)] 150 mg PO BID 08/14/18 [Last Taken ] Carvedilol [Coreg (*)] 6.25 mg PO BID 11/23/18 [Last Taken Unknown] Herbals/Supplements -Info Only 1 ea PO DAILY 11/23/18 [Last Taken Unknown] Rosuvastatin Calcium [Crestor 20mg (*)] 20 mg PO HS 11/23/18 [Last Taken Unknown ] I have personally reviewed and updated: family history, medical history, social history, surgical history - Past Medical History atrial fibrillation, coronary artery disease, diabetes type 2, hypertension, hyperlipidemia, psychiatric history - Surgical History Reports: coronary bypass surgery Additional surgical history: flutter ablation x 2 - Family History Positive for: non-pertinent - Social History Smoking Status: Never smoked Alcohol Use: Sober Drug Use: None Additional social history: , accompanied by his Review of Systems Review of Systems: ROS: 10pt was reviewed & negative except for what was stated in HPI & below Physical Exam Physical Exam: Temp Pulse Resp BP Pulse Ox 36.8 C 61 16 129/66 H 96 02/19/19 16:56 02/19/19 16:56 02/19/19 16:56 02/19/19 16:56 02/19/19 16:56 Constitutional: appears nourished, not in pain Eyes: PERRL, anicteric sclera Ears, Nose, Mouth, Throat: poor dentition, dry mucous membranes Cardiovascular: regular rate and rhythym, no murmur, rub, or gallop, edema ( trace ble) Respiratory: no respiratory distress, no rales or rhonchi Gastrointestinal: normoactive bowel sounds, soft, non-tender abdomen Genitourinary: no bladder tenderness Skin: warm Musculoskeletal: full muscle strength Neurologic: AAOx3 Psychiatric: interacting appropriately Lab Data & Imaging Review 02/19/19 15:43 02/19/19 15:43 WBC 6.04 10^3/uL (3.80-9.50) 02/19/19 15:43 RBC 3.68 10^6/uL (4.40-6.38) L 02/19/19 15:43 Hgb 11.7 g/dL (13.7-17.5) L 02/19/19 15:43 Hct 33.6 % (40.0-51.0) L 02/19/19 15:43 MCV 91.3 fL (81.5-99.8) 02/19/19 15:43 MCH 31.8 pg (27.9-34.1) 02/19/19 15:43 MCHC 34.8 g/dL (32.4-36.7) 02/19/19 15:43 RDW 13.9 % (11.5-15.2) 02/19/19 15:43 Plt Count 236 10^3/uL (150-400) 02/19/19 15:43 MPV 9.5 fL (8.7-11.7) 02/19/19 15:43 Neut % (Auto) 66.6 % (39.3-74.2) 02/19/19 15:43 Lymph % (Auto) 14.4 % (15.0-45.0) L 02/19/19 15:43 Whitley % (Auto) 9.6 % (4.5-13.0) 02/19/19 15:43 Eos % (Auto) 8.3 % (0.6-7.6) H 02/19/19 15:43 Baso % (Auto) 0.8 % (0.3-1.7) 02/19/19 15:43 Nucleat RBC Rel Count 0.0 % (0.0-0.2) 02/19/19 15:43 Absolute Neuts (auto) 4.02 10^3/uL (1.70-6.50) 02/19/19 15:43 Absolute Lymphs (auto) 0.87 10^3/uL (1.00-3.00) L 02/19/19 15:43 Absolute Monos (auto) 0.58 10^3/uL (0.30-0.80) 02/19/19 15:43 Absolute Eos (auto) 0.50 10^3/uL (0.03-0.40) H 02/19/19 15:43 Absolute Basos (auto) 0.05 10^3/uL (0.02-0.10) 02/19/19 15:43 Absolute Nucleated RBC 0.00 10^3/uL (0-0.01) 02/19/19 15:43 Immature Gran % 0.3 % (0.0-1.1) 02/19/19 15:43 Immature Gran # 0.02 10^3/uL (0.00-0.10) 02/19/19 15:43 PT 18.0 SEC (12.0-15.0) H 02/19/19 15:43 INR 1.56 (0.83-1.16) H 02/19/19 15:43 APTT 60.3 SEC (23.0-38.0) H 02/19/19 15:43 Sodium 132 mEq/L (135-145) L 02/19/19 15:43 Potassium 4.1 mEq/L (3.5-5.2) 02/19/19 15:43 Chloride 97 mEq/L (97-110) 02/19/19 15:43 Carbon Dioxide 25 mEq/l (22-31) 02/19/19 15:43 Anion Gap 10 mEq/L (6-14) 02/19/19 15:43 BUN 22 mg/dL (7-23) 02/19/19 15:43 Creatinine 1.4 mg/dL (0.7-1.3) H 02/19/19 15:43 Estimated GFR 50 02/19/19 15:43 Glucose 171 mg/dL (70-100) H 02/19/19 15:43 Calcium 9.4 mg/dL (8.5-10.4) 02/19/19 15:43 Total Bilirubin 1.0 mg/dL (0.1-1.4) 02/19/19 15:43 Conjugated Bilirubin 0.4 mg/dL (0.0-0.5) 02/19/19 15:43 Unconjugated Bilirubin 0.6 mg/dL (0.0-1.1) 02/19/19 15:43 AST 32 IU/L (17-59) 02/19/19 15:43 ALT 26 IU/L (21-72) 02/19/19 15:43 Alkaline Phosphatase 47 IU/L (38-126) 02/19/19 15:43 POC Troponin I 0.04 ng/mL (0.00-0.08) 02/19/19 15:52 Total Protein 7.6 g/dL (6.3-8.2) 02/19/19 15:43 Albumin 4.6 g/dL (3.5-5.0) 02/19/19 15:43 Visualized and Interpreted Chest x-ray results: Yes Chest X-Ray results: no infiltrate, other (cardiomegaly) Visualized and Interpreted EKG results: Yes EKG Interpretation: Positive for: normal sinsus rhythm, right bundle branch block EKG additional interpertation: LAFB Assessment & Plan Assessment: Pre-syncope (Acute) Bradycardia (Acute) 73 yo M with PMH of CAD, a fib/flutter presenting with symptomatic bradycardia # symptomatic bradycardia: in the setting of known paroxysmal a fib and hx of flutter s/p ablation x 2, has not been wendie here so far but notes he has been frequently in the 40s at home, did recently wear a zio patch and had f/u with Dr. Velazquez who noted that he may require PPM in the near future but not at that time. Plan to monitor on telemetry, cardiology will evaluate in am to determine if further intervention necessary at this time. Will hold any ana blocking agents # paroxysmal a fib: currently in SR with rates in the 60s, as above # chest pain: description very atypical for angina and patient states not similar to his prior anginal sxs, monitor on tele, serial trops # DM2: with sugars elevated since arrival in setting of recently discontinuing metformin, will start SSI and monitor blood glucose, check a1c # HLD: continue statin # CAD: as above, continue op meds other than bb # observation status # Patient new to my care. Old records reviewed and summarized as above. Care plan reviewed with ER doctor including plans for cardiology to follow up. Further hx obtained from patients present at bedside
[2019-02-19] MEDS ORDERED: ONDANSETRON DISINTEGRATING 4 MG TAB PO PRN (17:31)
[2019-02-19] MEDS ORDERED: ACETAMINOPHEN 325 MG TAB PO PRN (17:31)
[2019-02-19] MEDS ORDERED: ONDANSETRON 4 MG/2 ML VIAL IVP PRN (17:31)
[2019-02-19] MEDS ORDERED: NS 1,000 ML IV SCH (17:45)
[2019-02-19] MEDS ORDERED: D50W 25 GM/50 ML SYR IVP PRN (18:23)
[2019-02-20 06:16] LABS: PLATELET COUNT 204 10^3/uL (150-400)
[2019-02-20] MEDS: INSULIN LISPRO 100 UNIT/ML SC SCH ×2 (07:08→12:46)
[2019-02-20] MEDS ORDERED: buPROPion SR 100 MG TAB PO SCH (11:00)
[2019-02-20] MEDS ORDERED: PANTOPRAZOLE SODIUM 40 MG TAB PO SCH (11:00)
[2019-02-20] MEDS ORDERED: DABIGATRAN ETEXILATE MESYL 150 MG CAP PO SCH (11:00)
--- NOTE | 2019-02-20 11:04 | PDCARPN ---
Cardiology Progress Note Chief Complaint: dizziness Assessment/Plan: Assessment: 73M PMH CAD/CABG 6V in 2004, htn, DM, dyslipidemiea, PAF/fl, s/p 2 ablations for Afl in 10/20 and 11/21. He presents with 3-week h/o lightheadedness. Presyncope without overt syncope. No cp or dyspnea. Echo from 12/01/18 shows EF 60%, mild dilated LA/RA, mod MR/TR, RVSP 37. Stress test from 02/18/19 showed that he was dizzy at beginning of stress test with HR 60 and normotensive BP. No ischemia and exercised 6 minutes. Zio from 01/21 (12 days) iwth HR 41-129. There was 1 hour 5 minutes of AF <1% AF burden. He a single 3.8 second conversion pause. He had 6 nonsustained AT runs longest 13 beats. Plan: #. pause: none seen on telemetry patient unfortunately did not capture his pause from [employer] monitor #. PAF: no bouts on telemetry continue Pradaxa for [id number] 4 continue Carvedilol at lower dose #. dizziness: he feels improved with what he perceives as improved glycemic control monitor BS, BP #. htn: BP low despite not getting his AM Losartan and Carvedilol will reduce antihypertensive doses #. DM: per hospital med and endo #. CAD: no angina and trops negative doubt current presentation is related to ischemia #. mod MR/TR: repeat echo in 11/22 (outpatient followo up) OK to d/c home from cardiology perspective with med adjustments, close BP and glucose monitoring. Repeat Zio or Preventice in a closer interval and follow up with Caroline. 02/20/19 10:53 Subjective: Feels improved Reviewed/Discussed With: hospitalist () Objective: Vital Signs (8 Hrs) Temp Pulse Pulse Pulse Pulse Resp BP 02/20/19 10:36 62 59 L 60 18 02/20/19 07:19 97.5 F 70 18 125/75 H 02/20/19 04:00 97.8 F 67 14 105/54 L BP BP BP Pulse Ox 02/20/19 10:36 141/67 H 147/82 H 119/73 93 02/20/19 07:19 93 02/20/19 04:00 94 Intake/Output (24 Hrs) 04/19/19 04/20/19 04/21/19 05:59 05:59 05:59 Intake Total 1266 Output Total 775 Balance 491 Intake: IV Intake (ml) 1266 Output: Urine (ml) 775 Urinal 775 Other: Weight 93.1 kg Intake Quantity Yes Sufficient Bladder Scan Volume (ml) Urinal 309 Result Diagrams: 02/20/19 05:32 02/20/19 05:32 Cardiac Labs: Cardiac Lab Results (72 Hrs) 02/20/19 02/19/19 05:32 23:28 Troponin I < 0.012 < 0.012 EKG: personally interpreted shows SN 52, RBBB, inf Qs Telemetry: SB no pauses or arrhythmias - Physical Exam Constitutional: healthy appearing, no apparent distress Eyes: PERRL Ears, Nose, Mouth, Throat: moist mucous membranes Cardiovascular: regular rate and rhythm, no murmurs Respiratory: clear to auscultate bilat, no crackles Neurologic: AAOx3 Psychiatric: cooperative, interactive ICD10 Worksheet Patient Problems: Problems Problem Status Onset Bradycardia Acute Pre-syncope Acute Atrial flutter Acute
[2019-02-20] MEDS ORDERED: CARVEDILOL 3.125 MG TAB PO ONE (11:11)
[2019-02-20 11:27] VITALS: BP 124/68
[2019-02-20] MEDS ORDERED: FLUOCINONIDE 0.05% TP SCH (11:30)
--- NOTE | 2019-02-20 13:07 | ASMTDCNOTE ---
Case Management Discharge Discharge Order Complete? Answers: Yes Patient to Obtain Answers: via Family Medications Transportation Arranged Answers: Family/Friends Discharge Comments Notes: Pt is a 73 yo M presents with Presyncope, bradycardia. Cardiology consulted and pt is being discharged today. CM spoke with RN. Pt being discharged independently and will follow-up in the outpatient. No CM needs identified. Pt to arrange transport. Date Signed: 02/20/2019 01:05 PM Electronically Signed By:LEONIDAS Jackson
--- NOTE | 2019-02-20 13:10 | ASDISCHSUM ---
Discharge Information Plan Status:Home with No Needs Medically Cleared to Leave:02/20/2019 Discharge Date:02/20/2019 CM D/C Disposition: ADT D/C Disposition: Projected Discharge Date:02/20/2019 Transportation at D/C: Discharge Delay Reason: Follow-Up Date:02/20/2019 Discharge Slot: Final Diagnosis: Placement Information Patient Contact Information Contact Name:GUILLERMO Relationship: Address:[address] City:[place] Alternate Phone: State/Zip Code:[place] [address] Email: Financial Information Financial Class:Medicare Advantage Plans Primary Plan Desc:[employer] MEDICARE ADV Primary Plan Number:[id number] Secondary Plan Desc: Secondary Plan Number: Assessment Information Case Management Discharge Plan Note Case Management Discharge Discharge Order Complete? Answers: Yes Patient to Obtain Answers: via Family Medications Transportation Arranged Answers: Family/Friends Discharge Comments Notes: Pt is a 73 yo M presents with Presyncope, bradycardia. Cardiology consulted and pt is being discharged today. CM spoke with RN. Pt being discharged independently and will follow-up in the outpatient. No CM needs identified. Pt to arrange transport. Date Signed: 02/20/2019 01:05 PM Electronically Signed By:LEONIDAS Jackson LACE LACMirian Length of stay for Answers: Less than 1 day current admission Acuity / Level of Answers: No Care: Did the patient have an inpatient admission? Comorbidities - select Answers: Congestive heart failure all that apply Coronary Artery Disease Other Notes: 6vessel CABG, flutter ablations # of Emergency department Answers: 1-2 visits in the last 6 months Score: 6 Date Signed: 02/20/2019 01:09 PM Electronically Signed By:LEONIDAS Jackson Intervention Information
--- NOTE | 2019-02-20 15:23 | CPEKG ---
Test Reason : OPEN Blood Pressure : / mmHG Vent. Rate : 052 BPM Atrial Rate : 052 BPM P-R Int : 175 ms QRS Dur : 133 ms QT Int : 450 ms P-R-T Axes : 031 -35 003 degrees QTc Int : 419 ms Sinus rhythm Right bundle branch block Inferior infarct, old Confirmed by Joy Rodriguez ([id number]) on 02/20/2019 3:23:17 PM Referred By: Rayshawn Miguel Confirmed By:Joy Rodriguez
--- NOTE | 2019-02-20 16:38 | PDDCSUM ---
Discharge Summary Discharge Summary: Date of Admission: 02/19/2019 Date of Discharge: 02/20/2019 Consults: Cardiology Followup: PCP, Cardiology/EP Hospital Course Problem List: 73 yo M with PMH of CAD, a fib/flutter presenting with symptomatic bradycardia # symptomatic bradycardia: in the setting of known paroxysmal a fib and hx of flutter s/p ablation x 2, has not been wendie here so far but notes he has been frequently in the 40s at home, did recently wear a zio patch and had f/u with Dr. Velazquez who noted that he may require PPM in the near future but not at that time. Monitored on telemetry overnight no pauses, acute events noted. Evaluated by cardiology, recommend decreasing Coreg and f/u with Dr. Velazquez for further evaluation and repeat Zio or Preventice in closer interval # paroxysmal a fib: currently in SR with rates in the 60s, as above # chest pain: description very atypical for angina and patient states not similar to his prior anginal sxs, monitor on tele, serial trops # DM2: with sugars elevated since arrival in setting of recently discontinuing metformin, s/p SSI and monitor blood glucose, A1c 6.5, f/u with PCP/ Endocrinology for further management # HLD: continue statin # CAD: as above, continue op meds Time spent on discharge was >35 minutes with >50% of time spent on patient education and counseling.
[2019-02-20] MEDS ORDERED: CARVEDILOL 3.125 MG TAB PO SCH (18:00)
[2019-02-20] MEDS ORDERED: MAGNESIUM OXIDE 400 MG TAB PO SCH (21:00)
[2019-02-20] MEDS ORDERED: FLUOCINONIDE 0.05% 15 GM CREAM TP SCH (21:00)
[2019-02-21] MEDS ORDERED: OMEGA-3 FATTY ACIDS 1,000 MG CAP PO SCH (09:00)
[2019-02-21] MEDS ORDERED: FINASTERIDE 5 MG TAB PO SCH (09:00)
[2019-02-21] MEDS ORDERED: FENOFIBRATE 145 MG TAB PO SCH (09:00)
[2019-02-21] MEDS ORDERED: ROSUVASTATIN CALCIUM 40 MG TAB PO SCH ×2 (09:00)
[2019-02-21] MEDS ORDERED: LOSARTAN POTASSIUM 25 MG TAB PO SCH (09:00)
[2019-02-21] MEDS ORDERED: MULTIVITAMINS 1 EACH TAB PO SCH (09:00)
== END 2019-02-20 13:32 | disposition home or self-care (01) ==
LOC: F2W 17:30
PROVIDERS: ADMIT Internal Medicine; ATTEND Internal Medicine
DX: R00.1 Bradycardia, unspecified (principal); I48.0 Paroxysmal atrial fibrillation; R07.9 Chest pain, unspecified; E11.9 Type 2 diabetes mellitus without complications; E78.5 Hyperlipidemia, unspecified; I25.10 Atherosclerotic heart disease of native coronary artery without angina pectoris; E86.9 Volume depletion, unspecified
CPT/HCPCS: 71046; 93005; 96360; 99285; G0378; 84484-ER

== ENCOUNTER 2019-02-23 07:36 | Observation (INO) | payer OTHER ==
[2019-02-23] MEDS ORDERED: DIAZEPAM 5 MG TAB PO ONE (07:39)
[2019-02-23] MEDS ORDERED: BACITRACIN IRRIGATION/NS 50,000 UNITS/1,000 ML BTL IRR ONE (07:39)
[2019-02-23] MEDS ORDERED: NS 1,000 ML IV ONE (07:39)
[2019-02-23] MEDS ORDERED: diphenhydrAMINE 25 MG CAP PO ONE (07:39)
[2019-02-23] MEDS ORDERED: ceFAZolin 2 GM/DEXTROSE 100 ML IV ONE (07:39)
[2019-02-23 08:19] LABS: PLATELET COUNT 241 10^3/uL (150-400)
--- NOTE | 2019-02-23 08:34 | CPEKG ---
Test Reason : OPEN Blood Pressure : / mmHG Vent. Rate : 058 BPM Atrial Rate : 057 BPM P-R Int : 162 ms QRS Dur : 134 ms QT Int : 435 ms P-R-T Axes : 027 -40 002 degrees QTc Int : 428 ms Sinus rhythm with sinus arrthymia RBBB and LAFB Confirmed by Romero Crain ([id number]) on 02/23/2019 8:34:14 AM Referred By: Garth Velazquez Confirmed By:Romero Crain
[2019-02-23 08:39] LABS: INR 1.06 (0.83-1.16); PROTIME(PATIENT) 13.4 SEC (12.0-15.0)
--- NOTE | 2019-02-23 08:40 | PDGENHP ---
History & Physical History of Present Illness: Post-conversion pauses, sinus node Wenckebach exit block, lightheadedness Relevant Physical Exam: A&Ox4, no apparent distress, lungs CTA, regular rate and rhythm, S1, S2 Cardiorespiratory Assessment: Proceed with implant of a dual-chamber PPM today.
[2019-02-23] MEDS ORDERED: LIDOCAINE 2% 2 ML INJ ONE (09:31)
[2019-02-23] MEDS ORDERED: PROPOFOL/EMULSION 500 MG/50 ML BOTTLE IV ONE ×2 (09:31)
[2019-02-23] MEDS ORDERED: IOPAMIDOL (ISOVUE-300) 100 ML BTL ONE (10:13)
[2019-02-23] MEDS ORDERED: LIDOCAINE 1% 300 MG/30 ML SDV ONE (10:13)
[2019-02-23] MEDS ORDERED: BUPIVACAINE 0.75% 10 ML SDV ONE (10:13)
--- NOTE | 2019-02-23 10:27 | PDANEPAE ---
ANE Past Medical History - Cardiovascular History Hx Hypertension: Yes Hx Arrhythmias: Yes Hx Chest Pain: No Hx Coronary Artery / Peripheral Vascular Disease: Yes Hx CHF / Valvular Disease: No Cardiovascular History Comment: s/p cabg. Negative stress test last week - Pulmonary History Hx COPD: No Hx Asthma/Reactive Airway Disease: No Hx Recent Upper Respiratory Infection: No Hx Oxygen in Use at Home: No Hx Sleep Apnea: Yes - Endocrine History Hx Diabetes: Yes - Renal History Hx Renal Disorders: No - Liver History Hx Hepatic Disorders: No - Neurological & Psychiatric Hx Hx Neurological and Psychiatric Disorders: No - GI History Hx Gastrointestinal Disorders: Yes Gastrointestinal History Comment: Diverticulosis - Chronic Pain History Chronic Pain: No ANE Review of Systems Review of Systems: ANE Patient History - Allergies Allergies/Adverse Reactions: Xvuvfto-Mxz-Hpd Reductase Inhibitor Allergy (Unknown, Verified 02/19/19 15:20) Other-Enter Comments - Home Medications Home Medications: Dabigatran Etexilate Mesyl [Pradaxa 150 MG (*)] 150 mg PO BID 10/20/14 [Last Taken 02/22/19 08:00] Fenofibrate [Tricor 145 mg (*)] 145 mg PO DAILY 10/20/14 [Last Taken 02/19/19] Finasteride [Proscar 5 MG (*)] 5 mg PO DAILY 10/20/14 [Last Taken 02/19/19] Omeprazole [Prilosec 20 mg] 20 mg PO DAILY@0630 PRN 10/20/14 [Last Taken ] SITAGLIPTIN PHOSPHATE [Januvia 50 mg] 50 mg PO DAILY 08/14/18 [Last Taken ] Bupropion HCl [Bupropion HCl Sr] 100 mg PO DAILY 02/19/19 [Last Taken 02/19/19] Calcipotriene 1 aydee TP DAILY 02/19/19 [Last Taken Unknown] Fluocinonide 0.05% [Lidex 0.05% Cream] 1 aydee TP BID 02/19/19 [Last Taken Unknown ] Furosemide [Lasix 40 MG (*)] 40 mg PO DAILY 02/19/19 [Last Taken Unknown] Magnesium Oxide [Magnesium Oxide 400 mg (*)] 400 mg PO BID 02/19/19 [Last Taken 02/19/19] Multivitamins [Multivitamin (*)] 1 each PO DAILY 02/19/19 [Last Taken 02/19/19] [place]-3 Fatty Acids [Super Twin Epa-Dha] 1,250 mg PO DAILY 02/19/19 [Last Taken Unknown] Rosuvastatin Calcium [Crestor 40mg (*)] 40 mg PO DAILY 02/19/19 [Last Taken Unknown] - Smoking Hx Smoking Status: Never smoked ANE Labs/Vital Signs - Labs Result Diagrams: 02/23/19 08:10 02/23/19 08:10 - Vital Signs Height: 177.8 cm Weight: 89.358 kg ANE Physical Exam - Airway Neck exam: FROM Mallampati Score: Class 1 Mouth exam: dentures - Pulmonary Pulmonary: no respiratory distress, no rales or rhonchi, clear to auscultation - Cardiovascular Cardiovascular: regular rate and rhythym, no murmur, rub, or gallop - ASA Status ASA Status: III ANE Anesthesia Plan Anesthesia Plan: GA with mask Total IV Anesthesia: Yes
--- NOTE | 2019-02-23 16:27 | EPPROC ---
Electrophysiology Procedure Note: PROCEDURE PERFORMED: 1. Implantation of an A/V Pacemaker 2. Subclavian vein angiography 3. Fluoroscopy INDICATION: Bradycardia 2/2 sinoatrial exit block (2:1) Presyncope Sinus pauses >3 seconds PROCEDURE NOTE: Patient presented to the cardiac catheterization laboratory in a fasting, post absorptive state . Anesthesiologist administered sedation. The left infraclavicular area was prepped and draped in the usual sterile fashion. Lidocaine plus bupivacaine was used for local anesthesia. Left subclavian venography was performed by injection of iodinated contrast into the left antecubital vein. This was done to assure patency of the vein and also to assess for any anatomical aberrations. Using a combination of blunt and sharp dissection and electrocautery, the dissection was carried down to the prepectoral fascia. A pocket was made in this anatomical plane. All bleeding was controlled with electrocautery. The pocket was packed with gauze soaked in antibiotic solution. Fluoroscopy was utilized during the entire procedure for venous access and placement of the leads. Using a direct stick technique the left extrathoracic axillary vein was accessed with 2 sticks using the modified Seldinger technique. Placement of the guidewires into the venous system was confirmed by low-pressure blood return and also by visualizing the guidewires advancing into the inferior vena cava. A purse string suture was applied around the guidewires. Two #6 [place] sheaths were advanced under fluoroscopic guidance over the guidewire. An active fixation ventricular lead was advanced into the right ventricular septum and screwed in place. An active fixation atrial lead was advanced into the right atrial appendage and screwed in place. The peel away sheaths were removed. Pacing thresholds, sensing parameters and lead impedances were measured. There was no diaphragmatic stimulation at maximum output. The leads were sutured to the prepectoral fascia with 3 nonabsorbable sutures each. The pocket was again inspected for any bleeding. The leads were attached to the pacemaker securely. The pacemaker was inserted into the pocket and secured in place with a nonabsorbable suture. Fluoroscopy was performed in VACA and THAI planes to verify right-sided placement of the leads. Also fluoroscopy of the pacemaker pocket was performed. The pacemaker pocket was closed in 3 layers with absorbable monocryl sutures and pancho. Appropriate dressing was applied. The patient left the cardiac catheterization laboratory in stable condition. Serial Numbers: 1. Device: SJM Assurity MRI [id number] 2. Atrial Lead: SJM Tendril [id number] 3. Ventricular Lead: SJM tendril 8 TC 58 [id number] Stimulation Thresholds & Impedance Measurements: 1. Atrial Lead P 2.8 mV 502 ohm 0.4 V 0.5 ms 2. Ventricular Lead R 7 mV 825 ohm 1.1 V 0.5 ms Romario Pacing Parameters 1. Pacing mode: DDD 2. Lower rate: 60ppm 3. Upper tracking rate: 130 ppm 4. Upper sensor rate: 130 ppm Patient Problems: Problems Problem Status Onset Pre-syncope Acute Bradycardia Acute Atrial flutter Acute
[2019-02-23] MEDS: CARVEDILOL 3.125 MG TAB PO SCH (19:06)
[2019-02-23] MEDS: MAGNESIUM OXIDE 400 MG TAB PO SCH (21:09)
[2019-02-23] MEDS: FLUOCINONIDE 0.05% 15 GM CREAM TP SCH (21:09)
[2019-02-24 04:46] LABS: PLATELET COUNT 249 10^3/uL (150-400)
[2019-02-24 07:38] VITALS: BP 116/75
[2019-02-24] MEDS: MAGNESIUM OXIDE 400 MG TAB PO SCH (08:52)
[2019-02-24] MEDS: CARVEDILOL 3.125 MG TAB PO SCH (08:52)
[2019-02-24] MEDS: FLUOCINONIDE 0.05% 15 GM CREAM TP SCH (08:55)
[2019-02-24] MEDS ORDERED: FUROSEMIDE 40 MG TAB PO SCH (09:00)
[2019-02-24] MEDS ORDERED: ROSUVASTATIN CALCIUM 40 MG TAB PO SCH (09:00)
[2019-02-24] MEDS ORDERED: OMEGA-3 FATTY ACIDS 1,000 MG CAP PO SCH (09:00)
[2019-02-24] MEDS ORDERED: FENOFIBRATE 145 MG TAB PO SCH (09:00)
[2019-02-24] MEDS ORDERED: buPROPion SR 100 MG TAB PO SCH (09:00)
[2019-02-24] MEDS ORDERED: LOSARTAN POTASSIUM 25 MG TAB PO SCH (09:00)
[2019-02-24] MEDS ORDERED: MULTIVITAMINS 1 EACH TAB PO SCH (09:00)
[2019-02-24] MEDS ORDERED: PANTOPRAZOLE SODIUM 40 MG TAB PO PRN (09:00)
[2019-02-24] MEDS ORDERED: DABIGATRAN ETEXILATE MESYL 150 MG CAP PO SCH (09:00)
[2019-02-24] MEDS ORDERED: CALCIPOTRIENE TP SCH (09:00)
[2019-02-24] MEDS ORDERED: FINASTERIDE 5 MG TAB PO SCH (09:00)
--- NOTE | 2019-02-24 11:12 | GDS ---
[f rep st] DISCHARGE SUMMARY SUPERVISING [employer]FFEE [employer]ENDER: Garth Velazquez MD. ADMISSION DIAGNOSES: 1. Post-conversion pauses. 2. Sinus node Wenckebach exit block. 3. Presyncope. DISCHARGE DIAGNOSES: Status post implant of a dual-chamber permanent pacemaker. PROCEDURES PERFORMED DURING HOSPITALIZATION: 1. Electrocardiogram. 2. Chest x-ray. 3. Implant of a dual-chamber permanent pacemaker. HOSPITAL COURSE: Patient presented 02/23/2019, for implant of a dual-chamber permanent pacemaker in the setting of symptomatic post-conversion pauses and sinus node Wenckebach exit block in the setting of recurrent presyncope. He underwent successful implant of a dual-chamber permanent pacemaker with Dr. Garth Velazquez. He reports feeling quite well overall this morning, and device interrogation demonstrates stable impedances and thresholds, his RV sensing is 2.5. He is appropriate and stable for discharge home today. CURRENT PHYSICAL EXAMINATION: GENERAL: Alert and oriented x4. No apparent distress. VITAL SIGNS: Blood pressure 116/75, heart rate 96, respiratory rate 16, SpO2 96% on room air. Temp 36.4 degrees Celsius. RESPIRATORY: Lungs are clear to auscultation without adventitious breath sounds. CARDIAC: Normal S1, S2. No S3, S4. Rhythm is irregularly irregular this morning. ABDOMEN: Normoactive bowel sounds times all 4 quadrants. No masses or tenderness. Soft to palpation. SKIN: [place], warm, dry without cyanosis, clubbing, or peripheral edema. Left pectoral incision site has a clean and dry dressing in place without evidence of hematoma, redness, oozing, or streaking from the site. EXTREMITIES: Pulses 2+ bilaterally. No edema. LABORATORY STUDIES: Drawn today demonstrate stable CBC and BMP compared to preprocedure. PROCEDURES: Implant of dual-chamber permanent pacemaker as mentioned above. Chest x-ray this morning demonstrates stable lead positioning without evidence of any acute abnormalities. DISCHARGE DISPOSITION: Patient will be discharged home in stable condition. He is under activity restrictions as below. DISCHARGE MEDICATIONS: Please see discharge medication reconciliation sheet for full details. Please note, the patient's Pradaxa has been restarted post procedure. He will continue all other medications as directed. DISCHARGE INSTRUCTIONS: 1. Post pacemaker instructions reviewed with patient in detail. 2. We discussed activity restrictions including avoidance of lifting his left arm above the level of the shoulder, putting it behind his back, pulling, pushing, or lifting more than 5 pounds for the next 4 weeks. He will avoid strenuous upper body exercises for the next 6 weeks. 3. He will keep his left pectoral incision clean and dry. If his dressing becomes saturated for any reason, he will remove the dressing and leave it open to air. 4. He will follow up with our device clinic in 1 week for removal of his pancho. 5. He will follow up with Dr. Velazquez or Kika in 1 month. The patient verbalizes understanding regarding all discharge instructions without questions or concerns. He will follow up as scheduled with [facility], and he will contact our clinic with any new or concerning symptoms prior to his upcoming visit. TIME SPENT ON DISCHARGE: Greater than 30 minutes. /[id number]/MODL MTDD
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
--- NOTE | 2019-02-25 10:22 | CPEKG ---
Test Reason : OPEN Blood Pressure : / mmHG Vent. Rate : 064 BPM Atrial Rate : 062 BPM P-R Int : 181 ms QRS Dur : 133 ms QT Int : 412 ms P-R-T Axes : 034 -42 003 degrees QTc Int : 425 ms Atrial-paced complexes RBBB and LAFB Confirmed by Romero Crain ([id number]) on 02/25/2019 10:22:18 AM Referred By: Garth Velazquez Confirmed By:Romero Crain
--- NOTE | 2019-02-25 10:25 | CPEKG ---
Test Reason : OPEN Blood Pressure : / mmHG Vent. Rate : 089 BPM Atrial Rate : 089 BPM P-R Int : 174 ms QRS Dur : 130 ms QT Int : 371 ms P-R-T Axes : 035 -51 018 degrees QTc Int : 452 ms Sinus rhythm RBBB and LAFB Confirmed by Romero Crain ([id number]) on 02/25/2019 10:25:04 AM Referred By: Garth Velazquez Confirmed By:Romero Crain
== END 2019-02-24 11:35 | disposition home or self-care (01) ==
LOC: FCATH 07:36 → F2W 12:08
PROVIDERS: ADMIT Internal Medicine Cardiovascular Disease; ATTEND Internal Medicine Cardiovascular Disease
PROC: 0JH607Z Insertion of Cardiac Resynchronization Pacemaker Pulse Generator into Chest Subcutaneous Tissue and Fascia, Open Approach (ICD-10-PCS; principal; 2019-02-23)
PROC: 02HK3JZ Insertion of Pacemaker Lead into Right Ventricle, Percutaneous Approach (ICD-10-PCS; principal; 2019-02-23)
PROC: 02H63JZ Insertion of Pacemaker Lead into Right Atrium, Percutaneous Approach (ICD-10-PCS; principal; 2019-02-23)
PROC: B5171ZA Fluoroscopy of Left Subclavian Vein using Low Osmolar Contrast, Guidance (ICD-10-PCS; principal; 2019-02-23)
DX: R00.1 Bradycardia, unspecified (principal); R55 Syncope and collapse; Z95.1 Presence of aortocoronary bypass graft
CPT/HCPCS: 33208; 71045; 71046; 93005; C1785; C1898; G0378; J0690; J2704; Q9967